=== PATIENT | male | born 1970 | race Caucasian/White ===

== ENCOUNTER 2017-02-20 10:36 | Emergency (ER) | payer OTHER ==
[~2017-02-20] VITALS: Ht 193 cm; Wt 136.1 kg
[~2017-02-20 10:36] MED LIST: ATENOLOL25 MG; XANAX0.25 MG; ZOLOFT25 MG
== END 2017-02-20 14:32 | disposition home or self-care (01) ==
LOC: ER 10:36
DX: R00.2 Palpitations (principal); I47.1 Supraventricular tachycardia

== ENCOUNTER → 2018-04-04 | Emergency (ER) | payer OTHER ==
[~2018-04-04] VITALS: Ht 193 cm; Wt 133.8 kg
== END | disposition home or self-care (01) ==
LOC: ER 20:16
DX: B34.9 Viral infection, unspecified (principal)

== ENCOUNTER 2018-09-22 16:55 | Emergency (ER) | payer OTHER ==
[~2018-09-22] VITALS: Ht 193 cm; Wt 142.9 kg
== END 2018-09-22 19:18 | disposition home or self-care (01) ==
LOC: ER 16:55
DX: L03.116 Cellulitis of left lower limb (principal)

== ENCOUNTER 2018-12-15 16:00 | Outpatient (CLI) | payer OTHER | END 2018-12-15 16:07 | disposition home or self-care (01) | LOC: RAD 16:00 | DX: I10 Essential (primary) hypertension (principal) ==

== ENCOUNTER 2019-05-06 07:12 | Emergency (ER) | payer OTHER ==
[~2019-05-06] VITALS: Ht 193 cm; Wt 133.8 kg
[2019-05-06] MEDS ORDERED: ATACAND16 MG PO (07:33)
== END 2019-05-06 10:56 | disposition home or self-care (01) ==
LOC: ER 07:12 → CPU-OBS 07:15 → ER 07:15
DX: I47.1 Supraventricular tachycardia (principal)
CPT/HCPCS: G0378; G0379; 93005

== ENCOUNTER → 2020-10-22 | Emergency (ER) | payer OTHER ==
[~2020-10-22] VITALS: Ht 190.5 cm; Wt 134.7 kg
[~2020-10-22] MED LIST changes: +ATACAND16 MG PO
== END | disposition left against medical advice (07) ==
LOC: ER 15:54
DX: R00.2 Palpitations (principal); I49.9 Cardiac arrhythmia, unspecified

== ENCOUNTER 2023-09-09 15:16 | Emergency (ER) | payer OTHER ==
[~2023-09-09] VITALS: Ht 190.5 cm; Wt 131.5 kg
[2023-09-09] MEDS ORDERED: TOPROL XL25 M1 (15:34)
[2023-09-09] MEDS ORDERED: cloNIDine HCL 0.2 MG TABLET PO ONE (16:30)
[2023-09-09] MEDS ORDERED: CLONIDINE HCL 0.1 MG TABLET PO ONE (16:41)
[2023-09-09] MEDS ORDERED: LORazepam 2 MG/ML VIAL IM ONE (17:15)
[2023-09-09] MEDS ORDERED: DILTIAZEM HCL 25 MG/5 ML VIAL IV ONE ×2 (17:30→17:32)
== END 2023-09-09 18:53 | disposition home or self-care (01) ==
LOC: ER 15:17
DX: I48.91 Unspecified atrial fibrillation (principal); I10 Essential (primary) hypertension; Z88.2 Allergy status to sulfonamides

== ENCOUNTER 2023-11-09 12:47 | Emergency (ER) | payer OTHER ==
[~2023-11-09] VITALS: Ht 190.5 cm; Wt 131.5 kg
[~2023-11-09 12:47] MED LIST changes: +TOPROL XL25 M1
[2023-11-09] MEDS ORDERED: METOPROLOL SUCC25 MG PO (13:26)
[2023-11-09] MEDS ORDERED: METOPROLOL TARTRATE 5MG/5ML AMPUL IV STA ×3 (14:07→15:07)
[2023-11-09] MEDS ORDERED: METOPROLOL TARTRATE 5MG/5ML AMPUL IV ONE ×2 (14:10→14:25)
[2023-11-09 14:23] LABS: HEMATOCRIT 45.5 % (39.0-48.0); HEMOGLOBIN 15.2 g/dL (13-16.00); MEAN CELL VOLUME 81.6 fL (80.0-100.00); MEAN CORPUSCULAR HEMOGLOBIN 27.3 pg (27.00-32.0); MEAN CORPUSCULAR HGB CONC 33.4 g/dl (32.0-36.0); PLATELET COUNT 251 K/uL (150-450); RED BLOOD COUNT 5.58 M/uL (4.00-6.00); RED CELL DISTRIBUTION WIDTH 13.4 % (11.5-14.5)
[2023-11-09 14:44] LABS: INR 1.05; PARTIAL THROMBOPLASTIN TIME 30.5 SECONDS (22.0-34.0); PROTHROMBIN TIME 11.4 SECONDS (9.0-11.5)
[2023-11-09] MEDS ORDERED: METOPROLOL SUCCINATE 50 MG TAB.SR.24H PO STA (14:48)
[2023-11-09 14:49] LABS: CALCIUM 9.2 mg/dL (8.5-10.1); CREATININE SERUM 0.98 mg/dL (0.70-1.30); GFR 80.01; POTASSIUM 3.97 mEq/L (3.5-5.1)
[2023-11-09] MEDS ORDERED: DILTIAZEM HCL 25 MG/5 ML VIAL IV ONE ×2 (18:30→18:55)
== END 2023-11-09 20:42 | disposition home or self-care (01) ==
LOC: ER 12:49
PROVIDERS: General Practice
DX: R00.2 Palpitations (principal); Z88.2 Allergy status to sulfonamides

== ENCOUNTER 2024-03-25 10:16 | Outpatient (CLI) | payer OTHER ==
[~2024-03-25 10:16] MED LIST changes: +METOPROLOL SUCC25 MG PO
== END 2024-03-25 10:21 | disposition home or self-care (01) ==
LOC: NUCLEAR 10:16
PROVIDERS: ATTEND Internal Medicine Cardiovascular Disease
DX: I10 Essential (primary) hypertension (principal); I47.19 Other supraventricular tachycardia